=== PATIENT | female | born 1990 | race Caucasian/White ===

== ENCOUNTER 2024-01-21 05:26 | Emergency (ER) | payer OTHER ==
[~2024-01-21] VITALS: Ht 157.5 cm; Wt 77.3 kg
[2024-01-21 05:30] VITALS: TEMP 98.6
[2024-01-21 06:07] VITALS: BP 125/80; PULSE 81; RESP 16; O2SAT 98
== END 2024-01-21 06:57 | disposition home or self-care (01) ==
LOC: EMS 05:28
DX: T19.2XXA Foreign body in vulva and vagina, initial encounter (principal); W44.F9XA Other object of natural or organic material, entering into or through a natural orifice, initial encounter; Y93.89 Activity, other specified; Y92.89 Other specified places as the place of occurrence of the external cause; Y99.8 Other external cause status
CPT/HCPCS: 99284; Z7502